=== PATIENT | female | born 1940 | race Caucasian/White ===

== ENCOUNTER 2016-08-11 11:33 | Observation (INO) | payer MEDICARE, MEDICAID ==
[2016-08-11] MEDS ORDERED: Aspirin Low Dose CHEW TAB* 81 MG PO ONE (12:32)
--- NOTE | 2016-08-11 13:13 | RAD ---
HISTORY: Chest and shoulder pain COMPARISONS: April 04, 2011 VIEWS:1: Single frontal portable view of the chest at 12:55 PM FINDINGS: LINES AND TUBES: None. CARDIOMEDIASTINAL SILHOUETTE: The cardiomediastinal silhouette is stable. PLEURA: The costophrenic angles are sharp. No pleural abnormalities are noted. LUNG PARENCHYMA: The lungs are clear. ABDOMEN: The upper abdomen is clear. There is no subphrenic gas. BONES AND SOFT TISSUES: No bone or soft tissue abnormalities are noted. IMPRESSION: NO ACTIVE CARDIOPULMONARY DISEASE.
[2016-08-11 13:28] LABS: Hematocrit 46 % (35-47); Mean Corpuscular HGB Conc 35 g/dl (31-36); Mean Corpuscular Hemoglobin 31 pg (27-31); Mean Corpuscular Volume 91 fL (80-97); Mean Platelet Volume 8 um3 (7.4-10.4); Red Blood Count 5.12 10^6/ul (4.0-5.4); Red Cell Distribution Width 13 % (10.5-15); White Blood Count 10.5 10^3/ul (3.5-10.8)
[2016-08-11 13:44] LABS: Albumin 4.1 g/dL (3.2-5.2); BUN/Creatinine Ratio 17.9 (8-20); Calcium 9.9 mg/dL (8.6-10.3); EGFR Non-African American 66.1 (>60); Globulin 3.3 g/dL (2-4); Total Bilirubin 0.5 mg/dL (0.2-1.0); Total Protein 7.4 g/dL (6.4-8.9)
[2016-08-11] MEDS ORDERED: Iohexol 350* (CONTRAST) 500 ML MDV IV ONE (14:21)
--- NOTE | 2016-08-11 15:11 | RAD ---
Indication: Smoker with back pain radiating to the chest. Contrast: Administered 99.9 ml of OMNIPAQUE 350 mgi/ml CTA of the chest, abdomen and pelvis was performed after IV contrast administration. No oral contrast was given. Coronal and sagittal reconstructed images were obtained. The ascending aorta, aortic arch and descending aorta demonstrates no evidence of aneurysmal dilatation. No evidence of aortic dissection is noted. There is however plaque noted in the aortic arch and extending to the descending aorta. The descending aorta demonstrates multiple irregular areas of what appears to be soft plaque and calcific plaque. The pulmonary arterial tree is well opacified. There are no filling defects present to suggest pulmonary embolus. Small mediastinal lymph nodes are noted measuring up to 9 mm. 10 mm right hilar lymph nodes are noted. The heart demonstrates no pericardial effusion. The trachea and major bronchi appear patent. The lung parsons demonstrate no evidence of alveolar consolidation. Some scarring is noted. No pleural fluid is identified. Some minimal scarring is noted in the right middle lobe anteriorly as well as in the lingula anteriorly. There is also some scarring in the left medial lower lobe posteriorly. CTA of the abdomen and pelvis demonstrates no evidence of abdominal aortic aneurysm. Atherosclerosis with soft plaque and calcific plaque is noted however. The celiac axis, superior mesenteric artery and renal arteries are all patent. Left and right common iliac arteries are patent. External iliac and common femoral arteries are intact. The liver is normal in size. No focal lesions or intrahepatic biliary duct dilatation is noted. Patient is status post cholecystectomy. The pancreas demonstrates no mass or pancreatic duct dilatation. The common duct is not dilated. The spleen demonstrates calcifications likely due to old granulomatous disease. Nodular hyperplasia of both adrenal glands are noted. The kidneys demonstrate symmetric nephrograms without focal lesions. Tiny calculus in the lower pole of the right kidney measures up to 4 mm without definite obstruction. No retroperitoneal lymphadenopathy is noted. No dilated loops of bowel are noted. CT of the pelvis demonstrates no evidence of free fluid. Diverticulosis without definite evidence of diverticulitis is noted. No hernias are identified. Urinary bladder is otherwise unremarkable. There is degenerative disc disease at multiple lumbar levels most severe at L4-L5. Endplate sclerosis at T8-T9, T7-T8 and T6-T7 is noted. Spinal canal appears to be intact. 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 THERE IS HOWEVER NO EVIDENCE OF AORTIC DISSECTION. NO EVIDENCE OF ANEURYSMAL DILATATION IS NOTED. THE LEFT SUBCLAVIAN ARTERY DEMONSTRATES PLAQUE AND IRREGULARITY AT ITS ORIGIN. SUPERIOR MESENTERIC ARTERY, CELIAC AXIS AND RENAL ARTERIES DEMONSTRATE PATENT FLOW HOWEVER THERE MAY BE ATHEROSCLEROTIC PLAQUE NEAR ITS ORIGIN. MULTILEVEL DEGENERATIVE DISC DISEASE IS NOTED OF THE THORACIC AND LUMBAR SPINE.
--- NOTE | 2016-08-11 16:01 | ED ---
Enedelia Hurtado Alok, scribed for Meme Flynn MD on 08/11/16 at 1313 . Back Pain - HPI Summary HPI Summary: 75 y/o female presents to the ED with c/o back and shoulder pain for the last 2 days. Additionally, pt c/o bilaterally calf and jaw pain, chest pressure, and hotness/tingling in her hands and feet. Pt states that her pain registers at a 8 out of 10 in severity. Pt denies any abd pain or cough. Pt also denies any recent travel, and denies any PMHx of CAD, DM, or HLD. She is on Diuretics for her legs. - History of Current Complaint Chief Complaint: EDChestPainROMI Stated Complaint: PAIN IN SHOULDER BLADE, JAW PAIN Time Seen by Provider: 08/11/16 12:30 Hx Obtained From: Patient Onset/Duration: Gradual Onset, Lasting Days, Still Present Onset/Duration: Started Days Ago, Atraumatic, Still Present Timing: Constant Severity Initially: Moderate Severity Currently: Moderate Pain Intensity: 8 Pain Scale Used: 0-10 Numeric Character: Sharp Aggravating Symptom(s): Nothing Alleviating Symptom(s): Nothing Associated Signs And Symptoms: Positive: Tingling - Hands/Feet, Other - Shoulder Pain, calf pain bilaterally, jaw pain, chest pressure. Negative: Abdominal Pain - Risk Factors AAA Risk Factors: Primary Relative/AAA, Smoking - Allergies/Home Medications Allergies/Adverse Reactions: Allergies Allergy/AdvReac Type Severity Reaction Status Date / Time No Known Allergies Allergy Verified 08/11/16 11:35 Home Medications: Home Medications Aspirin TAB* [Aspirin 325 MG TAB*] 325 mg PO BID PRN 08/11/16 [History Confirmed 08/11/16] Hydrochlorothiazide TAB* [Hydrodiuril TAB*] 25 mg PO DAILY 08/11/16 [History Confirmed 08/11/16] PMH/Surg Hx/FS Hx/Imm Hx Infectious Disease History: No Infectious Disease History: Denies: Traveled Outside the [place] in Last 30 Days - Family History Known Family History: Positive: Cardiac Disease - Father 59 y/o [place] - Social History Occupation: Retired Lives: With Family - Daughter Hx Tobacco Use: Yes Smoking Status (MU): Current Every Day Smoker Type: Cigarettes Review of Systems Negative: Fever Positive: Chest Pain - Pressure Negative: Cough Negative: Abdominal Pain Positive: Other - Back, Shoulder, Bilateral Calf, jaw pain Positive: Other - Hotness/Tingling hands/feet All Other Systems Reviewed And Are Negative: Yes Physical Exam Triage Information Reviewed: Yes Vital Signs On Initial Exam: Initial Vitals Temp Pulse Resp BP Pulse Ox 97.2 F 82 18 166/67 98 08/11/16 11:35 08/11/16 11:35 08/11/16 11:35 08/11/16 11:35 08/11/16 11:35 Vital Signs Reviewed: Yes Appearance: Positive: Well-Appearing, No Pain Distress Skin: Positive: Warm, Skin Color Reflects Adequate Perfusion, Dry Eyes: Positive: EOMI, RONDA ENT: Positive: Pharynx normal, TMs normal Neck: Positive: Supple, Nontender Respiratory/Lung Sounds: Positive: Clear to Auscultation, Breath Sounds Present. Negative: Rales, Rhonchi, Wheezes Cardiovascular: Positive: RRR. Negative: Murmur, Rub, Other - Gallops Abdomen Description: Positive: Nontender, Soft Bowel Sounds: Positive: Present Musculoskeletal: Positive: Strength/ROM Intact. Negative: Edema Left, Edema Right Neurological: Positive: Sensory/Motor Intact, Alert, Oriented to Person Place, Time, CN Intact II-III Psychiatric: Positive: Affect/Mood Appropriate Diagnostics - Vital Signs Vital Signs Temp Pulse Resp BP Pulse Ox 08/11/16 11:35 97.2 F 82 18 166/67 98 - Laboratory Lab Results: Lab Results 08/11/16 08/11/16 08/11/16 Range/Units 13:17 13:17 13:17 WBC 10.5 (3.5-10.8) 10^3/ul RBC 5.12 (4.0-5.4) 10^6/ul Hgb 16.0 (12.0-16.0) g/dl Hct 46 (35-47) % MCV 91 (80-97) fL MCH 31 (27-31) pg MCHC 35 (31-36) g/dl RDW 13 (10.5-15) % Plt Count 326 (150-450) 10^3/ul MPV 8 (7.4-10.4) um3 Neut % (Auto) 56.8 (38-83) % Lymph % (Auto) 33.2 (25-47) % Ralls % (Auto) 6.2 (1-9) % Eos % (Auto) 3.2 (0-6) % Baso % (Auto) 0.6 (0-2) % Absolute Neuts (auto) 6.0 (1.5-7.7) 10^3/ul Absolute Lymphs (auto) 3.5 (1.0-4.8) 10^3/ul Absolute Monos (auto) 0.7 (0-0.8) 10^3/ul Absolute Eos (auto) 0.3 (0-0.6) 10^3/ul Absolute Basos (auto) 0.1 (0-0.2) 10^3/ul Absolute Nucleated RBC 0 10^3/ul Nucleated RBC % 0 D-Dimer, Quantitative 200 (Less Than 230) ng/mL Sodium 137 (133-145) mmol/L Potassium 3.0 L (3.5-5.0) mmol/L Chloride 99 L (101-111) mmol/L Carbon Dioxide 31 (22-32) mmol/L Anion Gap 7 (2-11) mmol/L BUN 15 (6-24) mg/dL Creatinine 0.84 (0.51-0.95) mg/dL Est GFR ( Amer) 85.0 (>60) Est GFR (Non-Af Amer) 66.1 (>60) BUN/Creatinine Ratio 17.9 (8-20) Glucose 97 (70-100) mg/dL Lactic Acid (0.5-2.0) mmol/L Calcium 9.9 (8.6-10.3) mg/dL Total Bilirubin 0.50 (0.2-1.0) mg/dL AST 28 (13-39) U/L ALT 28 (7-52) U/L Alkaline Phosphatase 44 (34-104) U/L Troponin I 0.00 (<0.04) ng/mL Total Protein 7.4 (6.4-8.9) g/dL Albumin 4.1 (3.2-5.2) g/dL Globulin 3.3 (2-4) g/dL Albumin/Globulin Ratio 1.2 (1-3) /20/ Range/Units 13:17 WBC (3.5-10.8) 10^3/ul RBC (4.0-5.4) 10^6/ul Hgb (12.0-16.0) g/dl Hct (35-47) % MCV (80-97) fL MCH (27-31) pg MCHC (31-36) g/dl RDW (10.5-15) % Plt Count (150-450) 10^3/ul MPV (7.4-10.4) um3 Neut % (Auto) (38-83) % Lymph % (Auto) (25-47) % Ralls % (Auto) (1-9) % Eos % (Auto) (0-6) % Baso % (Auto) (0-2) % Absolute Neuts (auto) (1.5-7.7) 10^3/ul Absolute Lymphs (auto) (1.0-4.8) 10^3/ul Absolute Monos (auto) (0-0.8) 10^3/ul Absolute Eos (auto) (0-0.6) 10^3/ul Absolute Basos (auto) (0-0.2) 10^3/ul Absolute Nucleated RBC 10^3/ul Nucleated RBC % D-Dimer, Quantitative (Less Than 230) ng/mL Sodium (133-145) mmol/L Potassium (3.5-5.0) mmol/L Chloride (101-111) mmol/L Carbon Dioxide (22-32) mmol/L Anion Gap (2-11) mmol/L BUN (6-24) mg/dL Creatinine (0.51-0.95) mg/dL Est GFR ( Amer) (>60) Est GFR (Non-Af Amer) (>60) BUN/Creatinine Ratio (8-20) Glucose (70-100) mg/dL Lactic Acid 1.0 (0.5-2.0) mmol/L Calcium (8.6-10.3) mg/dL Total Bilirubin (0.2-1.0) mg/dL AST (13-39) U/L ALT (7-52) U/L Alkaline Phosphatase (34-104) U/L Troponin I (<0.04) ng/mL Total Protein (6.4-8.9) g/dL Albumin (3.2-5.2) g/dL Globulin (2-4) g/dL Albumin/Globulin Ratio (1-3) Result Diagrams: 08/11/16 13:17 08/11/16 13:17 Lab Statement: Any lab studies that have been ordered have been reviewed, and results considered in the medical decision making process. 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 THERE IS HOWEVER NO EVIDENCE OF AORTIC DISSECTION. NO EVIDENCE OF ANEURYSMAL DILATATION IS NOTED. THE LEFT SUBCLAVIAN ARTERY DEMONSTRATES PLAQUE AND IRREGULARITY AT ITS ORIGIN. SUPERIOR MESENTERIC ARTERY, CELIAC AXIS AND RENAL ARTERIES DEMONSTRATE PATENT FLOW HOWEVER THERE MAY BE ATHEROSCLEROTIC PLAQUE NEAR ITS ORIGIN. MULTILEVEL DEGENERATIVE DISC DISEASE IS NOTED OF THE THORACIC AND LUMBAR SPINE. CT Interpretation Completed By: Radiologist - EKG 1148 EKG Rhythm: Sinus Rhythm - 70 bpm EKG Interpretation: Poor R-wave progression. Inferior Q-waves. EKG Comparison: No Significant Change - Since 09/26/2010 Back Pain Course/Dx - Course Course Of Treatment: pt admitted for a stress test due to risks of age, tob ( still smokes) and family history - Diagnoses Provider Diagnoses: Chest pain Discharge - Discharge Plan Condition: Stable Disposition: ADMITTED TO [facility] Referrals: No Primary Care Phys,NOPCP [Primary Care Provider] - The documentation as recorded by the Enedelia parrish Alok accurately reflects the service I personally performed and the decisions made by me, Meme Flynn MD.
[2016-08-11] MEDS ORDERED: Aspirin TAB* 325 MG PO PRN (16:57)
[2016-08-11] MEDS ORDERED: Nicotine GUM* 2 MG PO PRN (16:58)
[2016-08-11] MEDS ORDERED: Nicotine Inhaler* 10 MG AMP INH PRN (16:58)
[2016-08-11] MEDS ORDERED: Potassium Chlor TAB* 20 MEQ TAB.ER PO ONE (16:59)
[2016-08-11] MEDS: Nicotine PATCH 21 MG/24 HR* PATCH TRANSDERM SCH (19:25)
[2016-08-11] MEDS: Heparin VIAL(*) 5000 UNITS/ML VIAL (FIVE THOUSAND) SUBCUT SCH (20:51)
[2016-08-11] MEDS ORDERED: Nicotine Patch Removal NOTE FOLLOW UP SCH (21:00)
--- NOTE | 2016-08-12 00:36 | HP ---
HOSPITAL MEDICINE HISTORY AND PHYSICAL: DATE OF ADMISSION: 08/11/16 ATTENDING PHYSICIAN: DO Justine Alvarado(dictation provided by Francia Mcelroy NP) CHIEF COMPLAINT: Chest pain. HISTORY OF PRESENT ILLNESS: Ms. Ramsey is a 75-year-old female with a past medical history of smoking, lower extremity edema, and IBS who presents today to the hospital with concerned for back and chest pain. Ms. Ramsey states that she was in her normal state of health until Thursday when she developed pain in her back between her shoulder blades. She states she has never had pain like this before. There was no injury or heavy activity prior to the development of the pain. The pain was intermittent and persisted through the night. By the next day, she had some pain radiating up into her jaw. This was concerning for her, but she prefers not to seek out medical care if at all possible. Today when she still felt uncomfortable, she called her daughter to bring her to the hospital. At this point, she said that she actually has pain in her chest. It is on the mid to right side of her chest. It is described as a sharp pain. It is not unassociated with any nausea, sweating, or vomiting. The pain seems to come and go spontaneously, it is not associated with activity. She denies any other complaint including fevers, chills, nausea, abdominal pain. She has been eating and drinking normally. In the emergency room, Ms. Ramsey had a troponin, which was 0 and EKG, which showed no evidence of ischemia. She also went on a for a chest, abdomen and pelvis CTA, which showed no acute abnormality. PAST MEDICAL HISTORY: 1. Irritable bowel syndrome. 2. Lower extremity edema. MEDICATIONS: 1. Aspirin 325 mg p.o. daily. 2. Hydrochlorothiazide 25 mg p.o. daily. ALLERGIES: No known drug allergies. FAMILY HISTORY: The patient's mother in her 90s and dad of cerebral hemorrhage in his 50s. SOCIAL HISTORY: The patient is at least a 2 pack a day smoker. She denies any alcohol or drug use. She lives with family. Her healthcare proxy will be her daughter, Olive. REVIEW OF SYSTEMS: A 14-point review of systems was completed with Ms. Ramsey and all those not mentioned above were negative. PHYSICAL EXAMINATION GENERAL: Ms. Clements is sitting up in the bed. She is in no acute distress. She is calm and cooperative with my examination. VITAL SIGNS: Temperature 97.2, heart rate 73, respiratory rate 22, O2 saturation 93% on room air, blood pressure 126/54. NEURO: She is alert, she is oriented to x3. She moves all extremities equally. There is no facial asymmetry or focal weakness. Extraocular movements are intact. LUNGS: Clear to auscultation bilaterally with no accessory muscle use and good aeration. HEART: S1, S2. No murmur, rub, or gallops and regular. ABDOMEN: Soft and nontender with bowel sounds positive x4. EXTREMITIES: No cyanosis or edema. SKIN: Intact. LABORATORY/DIAGNOSTIC DATA: Sodium 137, potassium 3.0, chloride 99, serum bicarbonate 7, BUN 15, creatinine 0.84, glucose 97. Troponin is 0.00. Lactic acid is 1.0. WBC 10.5, hemoglobin 16.0, hematocrit 46, platelet count 326. D- dimer is 200. Chest x-ray shows no active cardiopulmonary disease. Chest, abdomen, and pelvis CTA showed: "There is an atherosclerotic aorta with multiple areas of soft and calcific plaque. There is, however, no evidence of aortic dissection. No evidence of aneurysm or dilatation is noted. The left subclavian artery demonstrates plaque and irregularity at its origin. Superior mesenteric artery, celiac access and renal arteries demonstrate a patent flow; however, there may be atherosclerotic plaque near its origin. Multilevel degenerative disk disease is noted at the thoracic and lumbar spine. EKG shows sinus rhythm with no evidence of ischemia and heart rate about 70. ASSESSMENT: Ms. Ramsey is a 75-year-old female with a past medical history of irritable bowel syndrome and lower extremity edema who presents today to the hospital with concern for back pain, which radiated into jaw and now is in her chest. Our plan is for observation in the hospital for the followin. Chest pain: The patient's story is atypical for cardiac source of her chest pain; however, she is at risk with her prolonged history of heavy smoking and age 75. Plans will be for observation in the hospital for repeat troponins , telemetry monitoring, and chemical nuclear stress test tomorrow. 2. Smoking: The patient was counseled regarding smoking cessation at the bedside. She has been provided with nicotine replacement therapy. 3. Lower extremity edema. Plan to continue hydrochlorothiazide. 4. DVT prophylaxis on heparin subcu. 5. Disposition to telemetry. 6. Code status is full code. TIME SPENT: Approximately 60 minutes were spent on the admission of this patient, more than half the time spent with the patient at the bedside reviewing the events leading up to this hospitalization, performing the physical examination, and reviewing the plan [place] [id number]/CPS #: [id number] SINA
[2016-08-12] MEDS: Heparin VIAL(*) 5000 UNITS/ML VIAL (FIVE THOUSAND) SUBCUT SCH (06:06)
[2016-08-12] MEDS ORDERED: Docusate CAP* 100 MG PO PRN (08:22)
[2016-08-12] MEDS ORDERED: Bisacodyl SUPP* 10 MG SUPP PR PRN (08:22)
[2016-08-12] MEDS ORDERED: Polyethylene Glycol 3350* 17 GM PACKET PO SCH (09:00)
[2016-08-12] MEDS ORDERED: Hydrochlorothiazide TAB* 25 MG PO SCH (09:00)
[2016-08-12] MEDS ORDERED: Potassium Chlor TAB* 20 MEQ TAB.ER PO ONE (09:03)
--- NOTE | 2016-08-12 09:05 | PN ---
Subjective Date of Service: 08/12/16 Interval History: Patient seen and examined at bedside. She denies any further chest pain, SOB, abd pain, n/v. She states, "I'm ready to go home" even though she has not yet finished her stress test. She does report constipation, which she attributes as chronic and secondary to IBS. She has requested a suppository. Telemetry: Sinus rhythm 70s Family History: Unchanged from Admission Social History: Unchanged from Admission Past Medical History: Unchanged from Admission Objective Active Medications: Aspirin (Aspirin Tab*) 325 mg PO BID PRN PRN Reason: PAIN Bisacodyl (Dulcolax Supp*) 10 mg NM DAILY PRN PRN Reason: CONSTIPATION Docusate Sodium (Colace Cap*) 100 mg PO BID PRN PRN Reason: CONSTIPATION Heparin Sodium (Porcine) (Heparin Vial(*)) 5,000 units SUBCUT Q8HR [facility] Last Admin: 08/12/16 06:06 Dose: Not Given Hydrochlorothiazide (Hydrodiuril Tab*) 25 mg PO DAILY [facility] Nicotine (Nicotine Inhaler*) 10 mg INH Q2H PRN PRN Reason: CRAVING Nicotine (Nicotine Patch 21 Mg/24 Hr*) 1 patch TRANSDERM 0800 [facility] Last Admin: 08/11/16 19:25 Dose: 1 patch Nicotine Polacrilex (Nicotine Gum*) 2 mg PO Q2H PRN PRN Reason: CRAVING Pharmacy Profile Note (Nicotine Patch Removal Note*) 1 note FOLLOW UP 2100 [facility] Last Admin: 08/11/16 22:33 Dose: 1 note Polyethylene Glycol/Electrolytes (Miralax*) 17 gm PO DAILY [facility] Vital Signs 08/11/16 08/11/16 08/11/16 16:00 16:56 17:00 Temperature Pulse Rate 79 Respiratory 19 21 22 Rate Blood Pressure 121/48 115/50 (mmHg) O2 Sat by Pulse 92 Oximetry 08/11/16 08/11/16 08/11/16 17:30 18:00 18:35 Temperature 97.3 F Pulse Rate 77 80 Respiratory 25 19 18 Rate Blood Pressure 118/48 102/42 146/55 (mmHg) O2 Sat by Pulse 93 94 Oximetry 08/11/16 08/12/16 08/12/16 23:45 03:56 07:24 Temperature 98.3 F 97.9 F 97.2 F Pulse Rate 78 73 68 Respiratory 16 20 18 Rate Blood Pressure 123/49 116/63 116/50 (mmHg) O2 Sat by Pulse 93 92 95 Oximetry Oxygen Devices in Use Now: None Appearance: Female patient, lying in bed, in NAD Eyes: PERRLA Ears/Nose/Mouth/Throat: Clear Oropharnyx, Mucous Membranes Moist Neck: NL Appearance and Movements; NL JVP Respiratory: Symmetrical Chest Expansion and Respiratory Effort, Clear to Auscultation Cardiovascular: NL Sounds; No Murmurs; No JVD, RRR Abdominal: NL Sounds; No Tenderness; No Distention Extremities: - - trace lower extremity edema Skin: No Rash or Ulcers Neurological: Alert and Oriented x 3 Lines/Tubes/Other Access: Clean, Dry and Intact Peripheral IV Nutrition: Taking PO's Result Diagrams: 08/11/16 13:17 08/11/16 13:17 Additional Lab and Data: Lab Results 08/11/16 08/11/16 08/11/16 Range/Units 13:17 13:17 13:17 WBC 10.5 (3.5-10.8) 10^3/ul RBC 5.12 (4.0-5.4) 10^6/ul Hgb 16.0 (12.0-16.0) g/dl Hct 46 (35-47) % MCV 91 (80-97) fL MCH 31 (27-31) pg MCHC 35 (31-36) g/dl RDW 13 (10.5-15) % Plt Count 326 (150-450) 10^3/ul MPV 8 (7.4-10.4) um3 Neut % (Auto) 56.8 (38-83) % Lymph % (Auto) 33.2 (25-47) % Sebastian % (Auto) 6.2 (1-9) % Eos % (Auto) 3.2 (0-6) % Baso % (Auto) 0.6 (0-2) % Absolute Neuts (auto) 6.0 (1.5-7.7) 10^3/ul Absolute Lymphs (auto) 3.5 (1.0-4.8) 10^3/ul Absolute Monos (auto) 0.7 (0-0.8) 10^3/ul Absolute Eos (auto) 0.3 (0-0.6) 10^3/ul Absolute Basos (auto) 0.1 (0-0.2) 10^3/ul Absolute Nucleated RBC 0 10^3/ul Nucleated RBC % 0 D-Dimer, Quantitative 200 (Less Than 230) ng/mL Sodium 137 (133-145) mmol/L Potassium 3.0 L (3.5-5.0) mmol/L Chloride 99 L (101-111) mmol/L Carbon Dioxide 31 (22-32) mmol/L Anion Gap 7 (2-11) mmol/L BUN 15 (6-24) mg/dL Creatinine 0.84 (0.51-0.95) mg/dL Est GFR ( Amer) 85.0 (>60) Est GFR (Non-Af Amer) 66.1 (>60) BUN/Creatinine Ratio 17.9 (8-20) Glucose 97 (70-100) mg/dL Lactic Acid (0.5-2.0) mmol/L Calcium 9.9 (8.6-10.3) mg/dL Total Bilirubin 0.50 (0.2-1.0) mg/dL AST 28 (13-39) U/L ALT 28 (7-52) U/L Alkaline Phosphatase 44 (34-104) U/L Troponin I 0.00 (<0.04) ng/mL Total Protein 7.4 (6.4-8.9) g/dL Albumin 4.1 (3.2-5.2) g/dL Globulin 3.3 (2-4) g/dL Albumin/Globulin Ratio 1.2 (1-3) 08/11/ Range/Units 13:17 WBC (3.5-10.8) 10^3/ul RBC (4.0-5.4) 10^6/ul Hgb (12.0-16.0) g/dl Hct (35-47) % MCV (80-97) fL MCH (27-31) pg MCHC (31-36) g/dl RDW (10.5-15) % Plt Count (150-450) 10^3/ul MPV (7.4-10.4) um3 Neut % (Auto) (38-83) % Lymph % (Auto) (25-47) % Sebastian % (Auto) (1-9) % Eos % (Auto) (0-6) % Baso % (Auto) (0-2) % Absolute Neuts (auto) (1.5-7.7) 10^3/ul Absolute Lymphs (auto) (1.0-4.8) 10^3/ul Absolute Monos (auto) (0-0.8) 10^3/ul Absolute Eos (auto) (0-0.6) 10^3/ul Absolute Basos (auto) (0-0.2) 10^3/ul Absolute Nucleated RBC 10^3/ul Nucleated RBC % D-Dimer, Quantitative (Less Than 230) ng/mL Sodium (133-145) mmol/L Potassium (3.5-5.0) mmol/L Chloride (101-111) mmol/L Carbon Dioxide (22-32) mmol/L Anion Gap (2-11) mmol/L BUN (6-24) mg/dL Creatinine (0.51-0.95) mg/dL Est GFR ( Amer) (>60) Est GFR (Non-Af Amer) (>60) BUN/Creatinine Ratio (8-20) Glucose (70-100) mg/dL Lactic Acid 1.0 (0.5-2.0) mmol/L Calcium (8.6-10.3) mg/dL Total Bilirubin (0.2-1.0) mg/dL AST (13-39) U/L ALT (7-52) U/L Alkaline Phosphatase (34-104) U/L Troponin I (<0.04) ng/mL Total Protein (6.4-8.9) g/dL Albumin (3.2-5.2) g/dL Globulin (2-4) g/dL Albumin/Globulin Ratio (1-3) Assess/Plan/Problems-Billing Assessment: Ms. Ramsey is a 75 yo female with a PMH of tobacco use, IBS, and chronic LE edema who presented to the ED with concern for chest pain. - Patient Problems (1) Chest pain Code(s): R07.9 - CHEST PAIN, UNSPECIFIED Comment: Atypical in presentation, presenting with back pain radiating into jaw and chest CTA negative for any acute pathology. EKG and repeat EKG with no evidence of ischemia, troponins negative. No evidence of myocardial ischemia by EKG criteria. Nuclear stress test shows small fixed defect and no wall motion abnormalities. Patient reports her lipid profile was checked recently and declined testing today. Follow-up with PCP. Smoking cessation education provided. (2) Tobacco use Code(s): Z72.0 - TOBACCO USE Comment: Smoking cessation encouraged. Patient advised to quit. Continue nicotine replacement therapy. (3) IBS (irritable bowel syndrome) Comment: Stable. Continue PRN bowel medications and supportive care. (4) Bilateral lower extremity edema Code(s): R60.0 - LOCALIZED EDEMA Comment: Continue HCTZ. (5) DVT prophylaxis Code(s): LQO7822 - Comment: SQ heparin Status and Disposition: OBV admit. D/c to home.
[2016-08-12] MEDS ORDERED: Regadenoson* 0.4 MG/5 ML SYRINGE ONE (09:11)
[2016-08-12] MEDS ORDERED: Aminophylline IV* 25 MG/ML 10 ML VIAL ONE (09:11)
--- NOTE | 2016-08-12 11:09 | RAD ---
Edited for charges. INDICATION: Chest pain COMPARISON: CTA chest August 11, 2016 TECHNIQUE: SPECT imaging was performed. Rest images were acquired following the intravenous injection of 10.23 millicuries of technetium 99m tetrofosmin at 0649 hours. Stress images were acquired following the intravenous administration of 26.98 millicuries of technetium 99m tetrofosmin at 0927 hours. FINDINGS: There is a small fixed defect involving the anterior septal myocardium that does not change drastically on the stress and rest views. The cardiac chamber size is normal. There are no wall motion abnormalities. The ejection fraction is calculated at 89% during stress imaging. IMPRESSION: Small fixed defect at the anteroseptal myocardium that could represent a prior site of infarction or "resting myocardium". ASSESSMENT: Intermediate risk. Based on imaging criteria from ACC/AHA 2002 Guideline Update for the Management of Patients With Chronic Stable Angina Table 23. Noninvasive Risk Stratification. MTDD
[2016-08-12] MEDS: Nicotine PATCH 21 MG/24 HR* PATCH TRANSDERM SCH (11:26)
[2016-08-12 12:15] VITALS: BP 133/49
--- NOTE | 2016-08-14 08:55 | DS ---
DISCHARGE SUMMARY: DATE OF ADMISSION: 08/11/16 DATE OF DISCHARGE: 08/12/16 PROVIDER: Briseyda Lacey NP ATTENDING PHYSICIAN: Dr. Toni Choudhary *(as dictated by Briseyda Lacey NP) PRIMARY CARE PROVIDER: Jessica Bernstein NP. PRIMARY DISCHARGE DIAGNOSIS: Chest pain. SECONDARY DISCHARGE DIAGNOSES: 1. Irritable bowel syndrome. 2. Lower extremity edema. MEDICATIONS AT DISCHARGE: 1. Aspirin 325 mg b.i.d. p.r.n. 2. Hydrochlorothiazide 25 mg daily. DIAGNOSTIC TESTING DURING THIS ADMISSION: 1. Chest x-ray on 08/11/16 shows no active cardiopulmonary disease. 2. CTA of the chest, abdomen, and pelvis from 08/11/16. Impression: There is an atherosclerotic aorta with multiple areas of soft and calcific plaque. There is, however, no evidence of an aortic dissection. No evidence of aneurysmal dilatation is noted. The left subclavian artery demonstrates plaque and irregularity at its origin. Superior mesenteric artery, celiac access, and renal arteries demonstrate a patent flow; however, there may be arthrosclerotic plaque near its origin. Multilevel degenerative disk disease is noted of the thoracic and lumbar spine. 3. Nuclear medicine scan: The ejection fraction is calculated at 89% during stress imaging. Impression: Small fixed defect at the inferior septal myocardium that could represent a prior site of infarction or "resting myocardium". Assessment: Intermediate risk. The patient's cardiac stress test showed no evidence of myocardial ischemia by EKG criteria. HOSPITAL COURSE OF STAY: For full details, please refer to the full medical record in the H and P provided by Francia Mcelroy NP. In summary, Ms. Ramsey is a 75-year-old female with a past medical history significant for smoking, as well as lower extremity edema, and IBS who presents to the hospital with concern for pain in her back between her shoulder blades. The pain was intermittent; it persisted through the night, and by the next day had radiated up into her jaw, and eventually moved into her chest. She came in for further evaluation. The troponin was zero. Her EKG showed no evidence of ischemia. However, given her symptoms, she was admitted for observation and further trending of her troponins , given her risk factors of heavy smoking as well as her advanced age. The patient denied any further chest pain overnight and into the following morning. She tolerated her stress test with findings as previously mentioned. I did discuss with the patient that she is at risk for developing cardiac as well as lung disease with her continued smoking. She verbalized understanding. I have advised her to quit. The patient received the information, but does not seem strongly motivated to quit at this time. I did attempt to draw a lipid profile and A1c; however, the patient declined this and stated that she will follow up with her PCP. She also states that she recently had a lipid profile and it was normal. CONCERNS AT DISCHARGE: Ms. Ramsey is discharged to home on 08/12/16 with the plan to follow up with her PCP within the next week. DIET: Heart-healthy diet. ACTIVITY: As tolerated. CONDITION: Stable. DISPOSITION: To home. TIME SPENT: Time spent on this discharge is approximately 40 minutes. Again, this is only a brief summary of the patient's hospital course of stay. For full details, please refer to the full medical record. If you have any further questions or need further assistance please feel free to contact me at . BRISEYDA LACEY NP CC: Jessica Bernstein NP.* [id number]/[facility] #: [id number] MTDRosemarie
== END 2016-08-12 12:48 | disposition home or self-care (01) ==
LOC: ED 11:33 → MEDTELE 15:54
PROVIDERS: ADMIT Hospitalist; ATTEND Hospitalist
DX: R07.9 Chest pain, unspecified (principal); R60.9 Edema, unspecified; I70.0 Atherosclerosis of aorta; K58.9 Irritable bowel syndrome, unspecified; F17.210 Nicotine dependence, cigarettes, uncomplicated; R94.31 Abnormal electrocardiogram [ECG] [EKG]
CPT/HCPCS: 36415; 71010; 71275; 74174; 78452; 80053; 83605; 84484; 85025; 85379; 93005; 93017; 99283; A9270-GY; A9502; G0378; J0280; J2785; Q9967

== ENCOUNTER 2017-10-29 09:42 | Emergency (ER) | payer MEDICARE, MEDICAID ==
[2017-10-29 10:32] VITALS: BP 110/62
--- NOTE | 2017-10-29 10:56 | ED ---
Respiratory - HPI Summary HPI Summary: 76 yr old female with the complaint of coughing. Onset 3-4 weeks ago, and also with post nasal drip and sinus pressure. She is a smoker. Denies CP, SOB. She does have congestion in chest. Some chills. - History of Current Complaint Chief Complaint: UCRespiratory Stated Complaint: COUGH,ACHY Time Seen by Provider: 10/29/17 10:28 Pain Intensity: 8 - Allergy/Home Medications Allergies/Adverse Reactions: Allergies Allergy/AdvReac Type Severity Reaction Status Date / Time No Known Allergies Allergy Verified 10/29/17 10:18 Home Medications: Home Medications Polyethylene Glycol 3350* [Miralax*] 17 gm PO DAILY 10/29/17 [History Confirmed 10/29/17] PMH/Surg Hx/FS Hx/Imm Hx Endocrine/Hematology History: Denies: Hx Diabetes Cardiovascular History: Reports: Hx Angina, Hx Hypertension Denies: Hx Coronary Artery Disease, Hx Hypercholesterolemia, Hx Myocardial Infarction Respiratory History: Denies: Hx Asthma, Hx Chronic Obstructive Pulmonary Disease (COPD) GI History: Reports: Hx Irritable Bowel Sensory History: Reports: Hx Contacts or Glasses Opthamlomology History: Reports: Hx Contacts or Glasses - Surgical History Surgery Procedure, Year, and Place: part hysterectomy. COLONOSCOPY Infectious Disease History: No Infectious Disease History: Denies: Traveled Outside the [place] in Last 30 Days - Family History Known Family History: Positive: Cardiac Disease - Father 59 y/o [place] - Social History Alcohol Use: None Substance Use Type: Reports: None Hx Tobacco Use: Yes Smoking Status (MU): Current Every Day Smoker Type: Cigarettes Amount Used/How Often: 1.5 PPD Review of Systems Constitutional: Negative Positive: Nasal Discharge Positive: Cough All Other Systems Reviewed And Are Negative: Yes Physical Exam Triage Information Reviewed: Yes Vital Signs On Initial Exam: Initial Vitals Temp Pulse Resp BP Pulse Ox 98.6 F 88 22 117/45 94 10/29/17 10:19 10/29/17 10:19 10/29/17 10:19 10/29/17 10:19 10/29/17 10:19 Vital Signs Reviewed: Yes Appearance: Positive: Well-Appearing, No Pain Distress Skin: Positive: Warm, Skin Color Reflects Adequate Perfusion Head/Face: Positive: Normal Head/Face Inspection Eyes: Positive: EOMI ENT: Positive: Normal ENT inspection, Pharynx normal, Sinus tenderness. Negative: Muffled voice, Hoarse voice Respiratory/Lung Sounds: Positive: Clear to Auscultation, Breath Sounds Present Cardiovascular: Positive: RRR. Negative: Murmur Abdomen Description: Positive: Nontender Musculoskeletal: Positive: Strength/ROM Intact. Negative: Edema Left, Edema Right Neurological: Positive: Sensory/Motor Intact, Alert, Oriented to Person Place, Time, CN Intact II-III Psychiatric: Positive: Normal - [place] Coma Scale Best Eye Response: 4 - Spontaneous Best Motor Response: 6 - Obeys Commands Best Verbal Response: 5 - Oriented Coma Scale Total: 15 Diagnostics - Vital Signs Vital Signs Temp Pulse Resp BP Pulse Ox 10/29/17 10:32 110/62 10/29/17 10:19 98.6 F 88 22 117/45 94 - Laboratory Lab Statement: Any lab studies that have been ordered have been reviewed, and results considered in the medical decision making process. - Radiology chest xray pa lat Xray Interpretation: No Acute Changes Radiology Interpretation Completed By: Radiologist Disposition - Course Course Of Treatment: 76 yr old female with sinusitis. Rx augmentin - Diagnoses Provider Diagnoses: Sinusitis Discharge - Sign-Out/Discharge Documenting (check all that apply): Discharge/Admit/Transfer - Discharge Plan Condition: Good Disposition: HOME Prescriptions: Amoxicillin/Clavulanate TAB* [Augmentin TAB 875*] 875 mg PO BID #20 tab Patient Education Materials: Sinusitis (ED) Referrals: Jessica Nicole [Primary Care Provider] - - Billing Disposition and Condition Condition: GOOD Disposition: Home
--- NOTE | 2017-10-29 11:30 | RAD ---
HISTORY: coughing COMPARISONS: August 11, 2016 VIEWS: 4: Frontal dual-energy and lateral views of the chest. FINDINGS: CARDIOMEDIASTINAL SILHOUETTE: The cardiomediastinal silhouette is normal. ASHLEY: The ashley are normal. PLEURA: The costophrenic angles are sharp. No pleural abnormalities are noted. LUNG PARENCHYMA: There is hyperinflation with flattening of the diaphragm and expansion of the AP diameter of the chest. ABDOMEN: The upper abdomen is clear. There is no subphrenic gas. BONES AND SOFT TISSUES: Degenerative changes are noted along the spine. OTHER: None. IMPRESSION: HYPERINFLATION, CONSISTENT WITH COPD. NO ACTIVE CARDIOPULMONARY DISEASE.
== END 2017-10-29 11:40 | disposition home or self-care (01) ==
LOC: UCCORT 09:42
DX: J32.9 Chronic sinusitis, unspecified (principal); F17.210 Nicotine dependence, cigarettes, uncomplicated
CPT/HCPCS: 71046; 99212; G0463

== ENCOUNTER 2018-04-22 15:55 | Emergency (ER) | payer MEDICARE, MEDICAID ==
--- NOTE | 2018-04-22 16:17 | ED ---
GI/ HPI - HPI Summary HPI Summary: This patient is a 77 year old F presenting to [facility] accompanied by her granddaughter with a chief complaint of lower ABD pain that began last night middle of the night. The patient rates the pain 7/10 in severity. Patient reports pink phlegm in her stool. She also c/o of feeling like she needs to pass stool but is unable to. Patient denies CP, SOB, fever, and use of blood thinners. No hx of COPD ad normal sat is 89-91% on room air per patient. She does not use NC or a CPAP. She is a currently 1.5 PPD every day smoker. Pt has non hodgkin's lymphoma and has had 9-10 weeks of chemo with the last treatment being 3 days ago. She states she had a colonoscopy 4 months ago without significant findings. - History of Current Complaint Chief Complaint: EDGIBleed Time Seen by Provider: 04/22/18 16:02 Stated Complaint: ABD AND RECTAL PAIN Hx Obtained From: Patient Onset/Duration: Started Hours Ago, Still Present Timing: Constant Severity: Mild Current Severity: Mild Pain Intensity: 7 Location of Pain: Suprapubic Associated Signs and Symptoms: Positive: Other: - blood in stool - Additional Pertinent History Primary Care Physician: [id number] - Allergy/Home Medications Allergies/Adverse Reactions: Allergies Allergy/AdvReac Type Severity Reaction Status Date / Time No Known Allergies Allergy Verified 04/22/18 15:59 PMH/Surg Hx/FS Hx/Imm Hx Endocrine/Hematology History: Denies: Hx Diabetes Cardiovascular History: Reports: Hx Angina, Hx Hypertension Denies: Hx Coronary Artery Disease, Hx Hypercholesterolemia, Hx Myocardial Infarction Respiratory History: Denies: Hx Asthma, Hx Chronic Obstructive Pulmonary Disease (COPD) GI History: Reports: Hx Irritable Bowel Sensory History: Reports: Hx Contacts or Glasses Opthamlomology History: Reports: Hx Contacts or Glasses - Surgical History Surgery Procedure, Year, and Place: part hysterectomy. COLONOSCOPY Infectious Disease History: No Infectious Disease History: Denies: Traveled Outside the [place] in Last 30 Days - Family History Known Family History: Positive: Cardiac Disease - Father 59 y/o [place] - Social History Alcohol Use: None Substance Use Type: Reports: None Hx Tobacco Use: Yes Smoking Status (MU): Current Every Day Smoker Type: Cigarettes Amount Used/How Often: 1.5 PPD Review of Systems Negative: Fever Negative: Chest Pain Negative: Shortness Of Breath Positive: Abdominal Pain, Other - pink colored stool and constipation All Other Systems Reviewed And Are Negative: Yes Physical Exam - Summary Physical Exam Summary: GENERAL: Patient is a well-developed and nourished F who is lying comfortable in the stretcher. Patient is not in any acute respiratory distress. HEAD AND FACE: Normocephalic EYES: PERRLA, EOMI x 2. EARS: Hearing grossly intact. MOUTH: Oropharynx within normal limits. NECK: Supple, trachea is midline, no adenopathy, no JVD, no carotid bruit. CHEST: Symmetric, no tenderness at palpation LUNGS: Clear to auscultation bilaterally. No wheezing or crackles. CVS: Regular rate and rhythm, S1 and S2 present, no murmurs or gallops appreciated. ABDOMEN: Soft, TTP lower ABD. Bowel sounds are normal. No abdominal abnormal pulsations. EXTREMITIES: Full ROM in all major joints, no edema, no cyanosis or clubbing. NEURO: Alert and oriented x 3. No acute neurological deficits. Speech is normal and follows commands. SKIN: Dry and warm Rectal: sample sent to lab for guaiac Triage Information Reviewed: Yes Vital Signs On Initial Exam: Initial Vitals Temp Pulse Resp BP Pulse Ox 97.3 F 92 18 161/58 90 04/22/18 15:57 04/22/18 15:57 04/22/18 15:57 04/22/18 15:57 04/22/18 15:57 Vital Signs Reviewed: Yes Diagnostics - Vital Signs Vital Signs Temp Pulse Resp BP Pulse Ox 04/22/18 15:57 97.3 F 92 18 161/58 90 - Laboratory Result Diagrams: 04/22/18 16:57 04/22/18 16:57 Lab Statement: Any lab studies that have been ordered have been reviewed, and results considered in the medical decision making process. - EKG 1626 Cardiac Rate: NL EKG Rhythm: Sinus Rhythm - at 88 BPM EKG Comparison: No Significant Change - very similar to EKG on 11 august 2016. Summary of EKG Findings: some st elevations in the inferior leads. GIGU Course/Dx - Course Assessment/Plan: This patient is a 77 year old F presenting to [facility] accompanied by her granddaughter with a chief complaint of lower ABD pain that began last night middle of the night. An EKG reveals NSR at [address] elevations in the inferior leads. Labs significant for Leukocytosis with a WBC of 63, hypokalemia of potassium of 3.0, and troponin of 0.05. Pt has had no chest pain in the ED. This patient will be signed out to Dr. Jackson awaiting CT results and dispo. - Diagnoses Provider Diagnoses: Lymphoma, Nonspecific abdominal pain Discharge - Sign-Out/Discharge Documenting (check all that apply): Sign-Out Patient Signing out patient TO: Ross Jackson - Discharge Plan Condition: Stable Disposition: HOME Patient Education Materials: Abdominal Pain (ED) Referrals: Chava Lugo MD [Primary Care Provider] - 3 Days Additional Instructions: FOLLOW UP WITH DR. LUGO IN 2-3 DAYS. RETURN TO ED FOR ANY NEW OR WORSENING SYMPTOMS. - Billing Disposition and Condition Condition: STABLE Disposition: Home - Attestation Statements Document Initiated by Scribe: Yes Documenting Scribe: Kenneth Nelson Provider For Whom Scribe is Documenting (Include Credential): Alcon Silverman MD Scribe Attestation: Kenneth Hurtado scribed for Alcon Silverman MD on 04/23/18 at 1828. Scribe Documentation Reviewed: Yes Provider Attestation: The documentation as recorded by the Kenneth parrish accurately reflects the service I personally performed and the decisions made by Alcon cuevas MD Status of Scribe Document: Viewed
[2018-04-22] MEDS ORDERED: NS 0.9% 1000 ML* 1,000 ML IV ONE (16:25)
[2018-04-22] MEDS ORDERED: Lidocaine 2% JELLY* 10 ML JELLY TOPICAL ONE (16:29)
[2018-04-22] MEDS ORDERED: Lidocaine 2% JELLY* 6 ML JELLY TOPICAL ONE (17:00)
[2018-04-22 17:09] LABS: Hematocrit 42 % (35-47); Hemoglobin 13.4 g/dl (12.0-16.0); Mean Corpuscular HGB Conc 32 g/dl (31-36); Mean Corpuscular Hemoglobin 29 pg (27-31); Mean Corpuscular Volume 90 fL (80-97); Mean Platelet Volume 7.8 fL (7.4-10.4); Platelet Count 339 10^3/ul (150-450); Red Blood Count 4.59 10^6/ul (4.00-5.40); Red Cell Distribution Width 16 % (10.5-15); White Blood Count 63.3 10^3/ul (3.5-10.8)
[2018-04-22 17:27] LABS: INR 0.95 (0.77-1.02)
[2018-04-22 17:30] LABS: EGFR Non-African American 102.8 (>60)
[2018-04-22] MEDS ORDERED: Iohexol 300* (CONTRAST) 10 ML SDV IV ONE (17:51)
[2018-04-22] MEDS ORDERED: Potassium Chlor TAB* 20 MEQ TAB.ER PO ONE ×2 (17:52→20:27)
[2018-04-22 18:01] LABS: ABS Basophils 0 10^3/ul (0-0.2); Monocytes % 0 %
[2018-04-22] MEDS ORDERED: Iohexol 350* (CONTRAST) 500 ML MDV IV ONE (18:17)
[2018-04-22] MEDS ORDERED: Potassium Chloride LIQUID* 20 MEQ PACKET PO ONE ×2 (18:35→20:42)
--- NOTE | 2018-04-22 20:18 | ED ---
Progress - Progress Note Progress Note: PATIENT WAS SIGNED OUT TO DR. CARRINGTON VIA DR. HERNANDEZ, PENDING REPORTS AND DISPOSITION, DURING SHIFT CHANGE ON 04/22/2018 AT 1900. CTA CHEST/ABDOMEN/PELVIS IMPRESSION: 1. No primary or secondary neoplasms. 2. Right pleural effusion and associated right lung volume loss. 3. Distal colonic diverticulosis. 2006 EKG NSR 94 BPM - NO ACUTE CHANGES Re-Evaluation - Re-Evaluation First Eval Re-Evaluation Time: 20:10 Change: Improved Comment: PATIENT REPORTED NO PAIN. FEELS MUCH BETTER. Course/Dx - Course Course Of Treatment: A 77 y/o female presents to the ED accompanied by her granddaughter c/o lower abdominal pain that began last night middle of the night. The patient rates the pain 7/10 in severity. Patient reports pink phlegm in her stool. She also c/o of feeling like she needs to pass stool but is unable to. Patient denies CP, SOB, fever, and use of blood thinners. No hx of COPD ad normal sat is 89-91% on room air per patient. She does not use NC or a CPAP. She is a currently 1.5 PPD every day smoker. Pt has non hodgkin's lymphoma and has had 9-10 weeks of chemo with the last treatment being 3 days ago. She states she had a colonoscopy 4 months ago without significant findings. An EKG revealed NSR of [address] elevations in the inferior leads. Another EKG revealed NSR of 94 BPM, no acute changes. A CT A/P revealed 1. No primary or secondary neoplasms. 2. Right pleural effusion and associated right lung volume loss. 3. Distal colonic diverticulosis. Blood work and Chemistry was done. Labs significant for Leukocytosis with a WBC of 63, hypokalemia of potassium of 3.0, and troponin of 0.05. Second troponin revealed to be 0.01. In the ED course, the patient recieved Omnipaque, Lidocaine, Klor Con Er Tab, and IV fluids. During reevaluation, the patient reported that she had no pain and was feeling much better. Patient care was discussed with Dr. Lugo who recommends discharge and patient to follow up as outpatient. Patient will be discharged with a diagnosis of abdominal pain and lymphoma. Patient is to follow up with Dr. Lugo as an outpatient in 2-3 days. Patient is agreeable with this plan. - Diagnoses Provider Diagnoses: Lymphoma, Nonspecific abdominal pain - Provider Notifications Discussed Care Of Patient With: Chava Lugo Time Discussed With Above Provider: 20:26 Instructed by Provider To: Other - RECOMMENDS DISCHARGING PATIENT. PATIENT IS TO FOLLOW UP OUTPATIENT. Discharge - Sign-Out/Discharge Documenting (check all that apply): Patient Departure - DISCHARGE - Discharge Plan Condition: Stable Disposition: HOME Patient Education Materials: Abdominal Pain (ED) Referrals: Chava Lugo MD [Primary Care Provider] - 3 Days Additional Instructions: FOLLOW UP WITH DR. LUGO IN 2-3 DAYS. RETURN TO ED FOR ANY NEW OR WORSENING SYMPTOMS. - Billing Disposition and Condition Condition: STABLE Disposition: Home - Attestation Statements Document Initiated by Eduardo: Yes Documenting Scribe: Adal Lopez Provider For Whom Eduardo is Documenting (Include Credential): Ross Carrington MD Scribe Attestation: Adal Hurtado scribed for Ross Carrington MD on 04/22/18 at 2144. Scribe Documentation Reviewed: Yes Provider Attestation: The documentation as recorded by the Adal parrish accurately reflects the service I personally performed and the decisions made by Ross cuevas MD Status of Scribe Document: Viewed
[2018-04-22] MEDS ORDERED: Potassium Chloride LIQUID* 20 MEQ PACKET ONE (20:44)
[2018-04-22 20:47] VITALS: BP 146/74
== END 2018-04-22 20:47 | disposition home or self-care (01) ==
LOC: ED 15:55
DX: C85.90 Non-Hodgkin lymphoma, unspecified, unspecified site (principal); R10.9 Unspecified abdominal pain; F17.210 Nicotine dependence, cigarettes, uncomplicated; I10 Essential (primary) hypertension
CPT/HCPCS: 36415; 71275; 74177; 80053; 82272; 84484; 85025; 85060; 85610; 85730; 86850; 86900; 86901; 93005; 96361; 96374; 99283; A9270-GY; Q9967

== ENCOUNTER 2018-05-19 11:32 | Emergency (ER) | payer MEDICARE, MEDICAID ==
--- NOTE | 2018-05-19 12:54 | ED ---
Skin Complaint - HPI Summary HPI Summary: A 77 y/o F presents to ED with c/o rash under breast, suspected shingles, onset approx one week. The rash is diffuse across her arms and neck, and is described as painful. Per grandchildren, patient has also experienced weakness, rectal bleeding 4-5 days ago, no BM for days, tingling to hands and feet, abd pain, decreased appetite. They state that Dr. Morrow is aware of these sx and referred her to hospital. Denies recent fever, cough. PMHx: lymphoma. Vital signs while in room: Unavailable. Home Medications Medication Instructions Recorded Confirmed Type Aspirin TAB* [Aspirin 325 MG TAB*] 325 mg PO DAILY 08/11/16 03/15/18 History Polyethylene Glycol 3350* 17 gm PO DAILY 10/29/17 03/15/18 History [Miralax*] Hydrocodone-Acetamin 5-325 mg 2 tab PO Q6HR PRN 03/08/18 03/15/18 History Oxycontin 10 mg (*) 10 mg PO BID 03/08/18 03/15/18 History Zofran 4 MG TAB 4 mg PO Q6H PRN 03/08/18 03/15/18 History Ciprofloxacin HCl [Cipro 500 MG 500 mg PO BID 03/09/18 03/15/18 History TAB] Omeprazole 40 mg PO DAILY 03/09/18 03/15/18 History - History of Current Complaint Chief Complaint: EDGeneral Time Seen by Provider: 05/19/18 12:51 Stated Complaint: WEAKNESS/BLOOD IN STOOL Hx Obtained From: Patient, Family/Product Safety Test Engineer - grandchildren present Onset/Duration: Started Weeks Ago - approx 1 week, Atraumatic, Still Present Timing: Constant, Lasting Weeks Onset Severity: Moderate Current Severity: Severe Pain Intensity: 8 Pain Scale Used: 0-10 Numeric Skin Location: Neck, Chest - under L breast, Arm Character: Pain Aggravating Symptom(s): Nothing Alleviating Symptom(s): Nothing Associated Signs & Symptoms: Numbness - "tingling" in hands and feet, Abdominal Pain - Additional Pertinent History Primary Care Physician: [id number] - Allergy/Home Medications Allergies/Adverse Reactions: Allergies Allergy/AdvReac Type Severity Reaction Status Date / Time No Known Allergies Allergy Verified 05/19/18 12:04 PMH/Surg Hx/FS Hx/Imm Hx Previously Healthy: No Endocrine/Hematology History: Denies: Hx Diabetes Cardiovascular History: Reports: Hx Angina, Hx Hypertension Denies: Hx Coronary Artery Disease, Hx Hypercholesterolemia, Hx Myocardial Infarction Respiratory History: Denies: Hx Asthma, Hx Chronic Obstructive Pulmonary Disease (COPD) GI History: Reports: Hx Irritable Bowel Sensory History: Reports: Hx Contacts or Glasses Opthamlomology History: Reports: Hx Contacts or Glasses - Surgical History Surgery Procedure, Year, and Place: part hysterectomy. COLONOSCOPY Infectious Disease History: No Infectious Disease History: Denies: Traveled Outside the [place] in Last 30 Days - Family History Known Family History: Positive: Cardiac Disease - Father 59 y/o [place] - Social History Occupation: Retired Lives: Alone Alcohol Use: None Substance Use Type: Reports: None Hx Tobacco Use: Yes Smoking Status (MU): Current Every Day Smoker Type: Cigarettes Amount Used/How Often: 1.5 PPD Review of Systems Positive: Other - pos: decreased appetite. Negative: Fever Negative: Cough Positive: Abdominal Pain, Other - pos: rectal bleeding, no BM Positive: Rash Neurological: Other - pos: tingling hands and feet Positive: Weakness All Other Systems Reviewed And Are Negative: Yes Physical Exam - Summary Physical Exam Summary: Appearance: Well-appearing, moderate pain distress, well-nourished Skin: Erythematous macular papular rash on her L chest inferior to breast in a dermatomal pattern, the rash is scabbed over in many places, and has surrounding redness. Head: Normal Head/Face inspection, atraumatic Eyes: Conjunctiva clear ENT: Normal inspection Neck: Supple, no nodes, no JVD Respiratory: Lungs clear, normal breath sounds, no respiratory distress Cardio: RRR, No murmur, pulses normal, brisk capillary refill Abdomen: Soft, nontender Bowel sounds: Present Musculoskeletal: Strength Intact/ROM intact, no calf tenderness, no edema. Psychological: Normal Neuro: Alert, muscle tone normal, no focal deficit RECTAL: TED Cervantes chaperoned. Non-tender, no hemorrhoids, flecks of brown stool present, sent for guaiac testing, no skye blood. Triage Information Reviewed: Yes Vital Signs On Initial Exam: Initial Vitals Temp Pulse Resp BP Pulse Ox 98.2 F 88 20 100/45 92 05/19/18 11:58 05/19/18 11:58 12/26/18 11:58 05/19/18 11:58 05/19/18 11:58 Vital Signs Reviewed: Yes Diagnostics - Vital Signs Vital Signs Temp Pulse Resp BP Pulse Ox 05/19/18 11:58 98.2 F 88 20 100/45 92 - Laboratory Result Diagrams: 05/19/18 14:25 05/19/18 14:25 Lab Statement: Any lab studies that have been ordered have been reviewed, and results considered in the medical decision making process. Re-Evaluation - Re-Evaluation 1 Re-Evaluation Time: 15:04 Change: Improved Comment: Reassessing patient and speaking with granddaughter. Pt does not want to be admitted. Pt denies abd pain at bedside. She is scheduled to be seen on 05/27/18 for f/u with Dr. Morrow. Rectal exam: TED Cervantes chaperoned. Non-tender, no hemorrhoids, flecks of brown stool present, no skye blood. Sample sent for guaiac testing. 2 Re-Evaluation Time: 16:38 Change: Unchanged Comment: Discussing discharge plan with pt. Course/Dx - Course Course Of Treatment: Pt is a 77 y/o F with lymphoma presenting with rash under L breast, arms and neck, (suspected shingles) onset approx one week. Per grandchildren, patient has also experienced rectal bleeding 4-5 days ago, tingling to hands and feet, abd pain. They state that Dr. Morrow, oncology, is aware of these sx. Lab work is unremarkable. UA reviewed. Allergies noted. Pt medications reviewed this visit. Pt will discharged home with liquid Zovirax 5x daily. - Diagnoses Provider Diagnoses: Bright red blood per rectum, Shingles (herpes zoster) polyneuropathy, Tobacco abuse disorder Discharge - Sign-Out/Discharge Documenting (check all that apply): Patient Departure - D/C - Discharge Plan Condition: Stable Disposition: HOME Prescriptions: Acyclovir SUSP(*) [Zovirax Oral Suspension(*)] 800 mg PO SEE INSTRUCTIONS #700 ml Patient Education Materials: Acyclovir (By mouth), Shingles (ED) Referrals: Chava Morrow MD [Primary Care Provider] - 2 Days Additional Instructions: You were given acyclovir 800mg in the ER to start your treatment for shingles. You should take two more doses today, for a total of 5 doses every day. We have sent a prescription for 7 days to [facility] in [place] for you. Your labs did not show any anemia or serious abnormalities. Return to the ER if you have any new or worsening symptoms. - Attestation Statements Document Initiated by Sharmilaibe: Yes Documenting Scribe: Ange Richey Provider For Whom Sharmilaibe is Documenting (Include Credential): Dr. Kerry Rooney MD Scribe Attestation: I, Ange Richey, scribed for Dr. Kerry Rooney MD on 05/19/18 at 1638.
[2018-05-19] MEDS ORDERED: Morphine VIAL* 10 MG/ML 1 ML VIAL IM ONE (13:40)
[2018-05-19] MEDS ORDERED: Acyclovir SUSP(*) 200 MG/5 ML UDC PO ONE (13:43)
[2018-05-19] MEDS ORDERED: Morphine INJ* 2 MG/ML 1 ML SYRINGE (TWO MG - NEW SYRINGE VERSION) IM ONE (13:46)
[2018-05-19] MEDS ORDERED: Morphine INJ* 10 MG/ML 1 ML CARPUJECT IV ONE (13:49)
[2018-05-19] MEDS ORDERED: Morphine VIAL* 4 MG/ML VIAL (1 ml vial) IV ONE (14:06)
[2018-05-19 14:43] LABS: Hematocrit 42 % (35-47); Hemoglobin 13.7 g/dl (12.0-16.0); Mean Corpuscular HGB Conc 33 g/dl (31-36); Mean Corpuscular Hemoglobin 30 pg (27-31); Mean Corpuscular Volume 91 fL (80-97); Mean Platelet Volume 8.1 fL (7.4-10.4); Platelet Count 257 10^3/ul (150-450); Red Blood Count 4.58 10^6/ul (4.00-5.40); Red Cell Distribution Width 17 % (10.5-15); White Blood Count 16.6 10^3/ul (3.5-10.8)
[2018-05-19] MEDS ORDERED: NS 0.9% 1000 ML* 1,000 ML IV ONE (14:44)
[2018-05-19 14:57] LABS: Albumin 3.8 g/dL (3.2-5.2); Albumin/Globulin Ratio 1.6 (1-3); BUN/Creatinine Ratio 19.4 (8-20); C Reactive Protein 21.72 mg/L (<8.01); Calcium 9.3 mg/dL (8.6-10.3); EGFR Non-African American 85.3 (>60); Globulin 2.4 g/dL (2-4); INR 1.01 (0.77-1.02); Potassium 3.6 mmol/L (3.5-5.0); Total Bilirubin 0.4 mg/dL (0.2-1.0); Total Protein 6.2 g/dL (6.4-8.9)
[2018-05-19 16:23] LABS: Lymphocytes % 11 %; Metamyelocytes % 1 % (0-2); Monocytes % 10 %; Myelocytes % 1 % (0-1); Neutrophil % 75 %
[2018-05-19 16:25] LABS: Immature Granulocytes 4 % (0-9)
[2018-05-19 17:11] VITALS: BP 102/50
== END 2018-05-19 17:16 | disposition home or self-care (01) ==
LOC: ED 11:32
DX: B02.23 Postherpetic polyneuropathy (principal); K92.1 Melena; R21 Rash and other nonspecific skin eruption; R10.9 Unspecified abdominal pain; F17.210 Nicotine dependence, cigarettes, uncomplicated
CPT/HCPCS: 36415; 80053; 82272; 83605; 85025; 85610; 86140; 86850; 86900; 86901; 99282; A9270-GY; J1642; J2270

== ENCOUNTER 2019-07-25 06:17 | Day surgery (SDC) | payer MEDICAID, MEDICARE, OTHER ==
[~2019-07-25 06:17] MED LIST: Acetaminophen TAB* 325 MG PO PRN
[2019-07-25] MEDS ORDERED: Midazolam* 1 MG/ML 2 ML VIAL (2 MG) ONE (07:20)
[2019-07-25 08:24] VITALS: BP 100/43
[2019-07-25] MEDS ORDERED: Cyclopentolate 1% OPTH.SOL* 2 ML BTL ONE (08:26)
[2019-07-25] MEDS ORDERED: Ketorolac 0.5% OPHTH (NF) 0.5 % 5 ML BTL ONE (08:26)
[2019-07-25] MEDS ORDERED: Neomycin/Polymy/Dex OPHTH.OIN* 3.5 GM ONE (08:26)
[2019-07-25] MEDS ORDERED: Lidocaine 1% MPF ** 5 ML VIAL ONE (08:26)
[2019-07-25] MEDS ORDERED: acetaZOLAMIDE TAB* 250 MG ONE (08:26)
[2019-07-25] MEDS ORDERED: Phenylephrine OPHTH SOL 2.5%* 2 ML ONE (08:26)
[2019-07-25] MEDS ORDERED: Povidone Iodine 5% OPTH* 30 ML BTL ONE (08:26)
[2019-07-25] MEDS ORDERED: Tetracaine 0.5% OPTH.SOL 4 ML* 1 DROP BTL ONE (08:26)
--- NOTE | 2019-07-25 10:55 | OP ---
DATE OF OPERATION: 07/25/2019 - [facility] DATE OF : 1940. SURGEON: Manish Baker MD ANESTHESIA: Monitored anesthesia care. PREOPERATIVE DIAGNOSIS: Cataract, right eye. POSTOPERATIVE DIAGNOSIS: Cataract, right eye. OPERATIVE PROCEDURE: Extracapsular cataract extraction of the right eye with intraocular lens implant. IMPLANT: SN60WF 27.5 diopter lens to the right eye. COMPLICATIONS: None. DESCRIPTION OF PROCEDURE: The patient was given phenylephrine 2.5 % and cyclopentolate 1% eye drops to the operative eye in the preoperative area. The patient was taken to the operating room where a time-out was taken to identify the correct patient, site, and side of surgery. The patient's right eye was prepped and draped in the usual sterile fashion with 5% Betadine. A second time- out was taken to verify the correct patient, side, and site of surgery, as well as the correct lens implant. A lid speculum was placed to the right eye. A 1mm paracentesis blade was used to make a clear corneal incision. Preservative-free 1% lidocaine was injected into the anterior chamber. DisCoVisc was then injected into the anterior chamber. A 2.75 mm keratome blade was used to make a triplanar incision. A cystotome initiated a capsulorrhexis, which was completed with Utrata forceps in a continuous and curvilinear manner. Hydrodissection of the lens was performed with BSS on a cannula. The lens could be spun in a capsular bag. The phacoemulsification handpiece was used with a divide-and- conquer technique to remove the nucleus. The I/A handpiece then removed the residual cortical lens material. DisCoVisc was injected to inflate the capsular bag. The planned SN60WF 27.5 diopter lens was injected into the capsular bag. The residual DisCoVisc was removed from the eye with the I/A handpiece. The corneal incisions were hydrated and no leaks occurred at physiologic pressure around 20 mmHg per palpation. The lid speculum was removed and drapes were removed. Maxitrol ointment was placed to the surface of the operative eye. An adhesive patch and shield was then placed on the operative eye. The patient was taken to the postoperative area in stable condition. [id number]/[facility] #: [id number] [facility]
== END 2019-07-25 08:37 | disposition home or self-care (01) ==
LOC: OREAST 06:17
PROVIDERS: ATTEND Student in an Organized Health Care Education/Training Program
DX: H25.811 Combined forms of age-related cataract, right eye (principal); C85.10 Unspecified B-cell lymphoma, unspecified site; F17.210 Nicotine dependence, cigarettes, uncomplicated; Z79.891 Long term (current) use of opiate analgesic; Z79.52 Long term (current) use of systemic steroids
CPT/HCPCS: A9270-GY; J2250; V2632